=== PATIENT | male | born 1950 | race Caucasian/White ===

== ENCOUNTER → 2022-06-05 | Outpatient (CLI) | payer MEDICARE ==
[~2022-06-05] MED LIST: Aspir 8181 MG; CYCL0.05OP; ELIGARD7.5 MG SQ; Econazole Nitra15 GM; FLONASE ALLERG9.9 ML NS; Flunisolide25 ML NS; TACROLIMUS30 G1; TAMS.4ER PO
== END | disposition home or self-care (01) ==
LOC: LAB 11:12 → LAB SHORT 11:12
DX: L40.0 Psoriasis vulgaris (principal); L57.0 Actinic keratosis; L81.4 Other melanin hyperpigmentation; L71.0 Perioral dermatitis; L82.1 Other seborrheic keratosis; D22.5 Melanocytic nevi of trunk; L29.8 Other pruritus
CPT/HCPCS: 87070; 87205